=== PATIENT | female | born 1965 | race African-American/Black ===

== ENCOUNTER 2017-08-01 19:24 | Emergency (ER) | payer MEDICAID, OTHER ==
[~2017-08-01] VITALS: Ht 165.1 cm; Wt 86.0 kg
[2017-08-01] MEDS ORDERED: [UNRECOGNIZED DRUG - REMARK] PO (19:28)
[2017-08-01] MEDS ORDERED: ESCI10TA PO (19:28)
[2017-08-01] MEDS ORDERED: GABA-529 PO (19:28)
[2017-08-01 19:38] VITALS: BP 133/81
[2017-08-01] MEDS ORDERED: DEXAMETHASONE SOD PHOS 4 MG/ML 5 ML VIAL IM ONE (20:00)
[2017-08-01] MEDS ORDERED: BENZONATATE 100 MG CAPSULE PO ONE (20:00)
== END 2017-08-01 20:18 | disposition home or self-care (01) ==
LOC: EMS 19:25
DX: J40 Bronchitis, not specified as acute or chronic (principal); F41.9 Anxiety disorder, unspecified; M79.7 Fibromyalgia; E05.90 Thyrotoxicosis, unspecified without thyrotoxic crisis or storm; K21.9 Gastro-esophageal reflux disease without esophagitis; I34.1 Nonrheumatic mitral (valve) prolapse; Z90.710 Acquired absence of both cervix and uterus
CPT/HCPCS: 71010; 96372; 99283; J1100

== ENCOUNTER 2020-01-12 18:47 | Emergency (ER) | payer OTHER ==
[~2020-01-12] VITALS: Ht 165.1 cm; Wt 88.6 kg
[2020-01-12 23:17] VITALS: BP 119/73
== END 2020-01-12 23:41 | disposition home or self-care (01) ==
LOC: EMS 18:54
DX: S82.434A Nondisplaced oblique fracture of shaft of right fibula, initial encounter for closed fracture (principal); K21.9 Gastro-esophageal reflux disease without esophagitis; Z88.5 Allergy status to narcotic agent; Z90.710 Acquired absence of both cervix and uterus; V09.9XXA Pedestrian injured in unspecified transport accident, initial encounter; Y93.89 Activity, other specified; Y92.89 Other specified places as the place of occurrence of the external cause; Y99.8 Other external cause status
CPT/HCPCS: 29505; 29515

== ENCOUNTER → 2020-01-12 | Outpatient (CLI) | payer OTHER ==
[~2020-01-12] MED LIST: ESCI10TA PO; GABA-529 PO; [UNRECOGNIZED DRUG - REMARK] PO
== END | disposition home or self-care (01) ==
LOC: PUC 16:56
DX: S82.431A Displaced oblique fracture of shaft of right fibula, initial encounter for closed fracture (principal); R60.0 Localized edema; X58.XXXA Exposure to other specified factors, initial encounter; Y93.89 Activity, other specified; Y92.89 Other specified places as the place of occurrence of the external cause; Y99.8 Other external cause status